=== PATIENT | female | born 1970 | race Caucasian/White ===

== ENCOUNTER → 2021-01-18 | Outpatient (CLI) | payer BC ==
[~2021-01-18] MED LIST: CABERGOLINE0.5 MG PO; COLACE 100MG C100 MG PO; EFFEXOR XR37.5 MG PO; IBUPROFEN600 MG PO; NORCO 5-325 TA1 EACH PO; TAMOXIFEN CITRA20 MG PO
== END ==
LOC: KOH-I 01-10 11:00
DX: M54.5 Low back pain (principal); M51.36 Other intervertebral disc degeneration, lumbar region
CPT/HCPCS: 72131

== ENCOUNTER 2021-12-29 13:35 | Emergency (ER) | payer BC ==
[2021-12-29 14:19] LABS: HEMOGLOBIN 15.1 gm/dl (12.3-15.3); RED BLOOD COUNT 4.85 M/UL (4.00-5.10)
[2021-12-29 14:36] LABS: BUN/CREATININE RATIO 9 (0-10)
== END 2021-12-29 15:58 | disposition home or self-care (01) ==
LOC: ER1 13:35
PROVIDERS: Physician Assistant
DX: T14.8XXA Other injury of unspecified body region, initial encounter (principal); R79.89 Other specified abnormal findings of blood chemistry; R10.12 Left upper quadrant pain; R07.89 Other chest pain; R07.81 Pleurodynia; W01.198A Fall on same level from slipping, tripping and stumbling with subsequent striking against other object, initial encounter
CPT/HCPCS: 71260; 80053; 85025; 96374; 99284; Q9967